=== PATIENT | female | born 1960 | race African-American/Black ===

== ENCOUNTER 2020-12-31 14:54 | Emergency (ER) | payer OTHER ==
[~2020-12-31] VITALS: Ht 167.6 cm; Wt 70.8 kg
[~2020-12-31 14:54] MED LIST: ALEVE220 MG PO; AMOXICILLIN500 M1 PO; IBUPROFEN 600600 M1 PO; LISINOPRIL10 MG PO; NORCO 5-325 TA1 EACH PO; SENNA-DOCUSATE1 EACH PO
[2020-12-31] MEDS ORDERED: IBUPROFEN 800800 MG PO (16:45)
[2020-12-31 16:50] VITALS: BP 141/108
== END 2020-12-31 16:55 | disposition home or self-care (01) ==
LOC: ER 14:54
DX: S60.032A Contusion of left middle finger without damage to nail, initial encounter (principal); S67.193A Crushing injury of left middle finger, initial encounter; Z79.899 Other long term (current) drug therapy; W23.0XXA Caught, crushed, jammed, or pinched between moving objects, initial encounter; Y93.89 Activity, other specified; Y92.69 Other specified industrial and construction area as the place of occurrence of the external cause; Y99.9 Unspecified external cause status